=== PATIENT | female | born 1950 | race Caucasian/White ===

== ENCOUNTER 2023-09-01 05:34 | Observation (INO) | payer BC ==
[2023-08-25 16:22] LABS: BASOPHILS # (AUTO) 0.1 X10'3 (0-0.2); BASOPHILS % (AUTO) 1.1 % (0-1); EOSINOPHILS # (AUTO) 0.3 X10'3 (0-0.9); EOSINOPHILS % (AUTO) 3.7 % (0-6); LYMPHOCYTES # (AUTO) 2.2 X10'3 (1.1-4.8); LYMPHOCYTES % (AUTO) 29.2 % (21-51); MEAN CORPUSCULAR HEMOGLOBIN 29.4 PG (27.0-31.0); MEAN CORPUSCULAR HGB CONC 32.9 g/dL (33.0-36.5); MEAN CORPUSCULAR VOLUME 89.5 FL (78-98); MEAN PLATELET VOLUME 8.4 FL (7.4-10.4); MONOCYTES # (AUTO) 0.6 X10'3 (0-0.9); MONOCYTES % (AUTO) 7.9 % (2-12); NEUTROPHILS # (AUTO) 4.4 X10'3 (1.8-7.7); NEUTROPHILS % (AUTO) 58.1 % (42-75); PRE OP HEMATOCRIT 44.1 % (35.0-45.0); PRE OP HEMOGLOBIN 14.5 g/dL (12.0-16.0); PRE OP PLATELET COUNT 249 X10'3 (140-440); PRE OP WHITE BLOOD COUNT 7.6 10'3 (4.8-10.8); RED BLOOD COUNT 4.93 X10'6 (4.20-5.60); RED CELL DISTRIBUTION WIDTH 14.3 % (11.5-14.5)
[2023-08-25 16:40] LABS: ALBUMIN 4.1 G/DL (3.4-5.0); ALBUMIN/GLOBULIN RATIO 1.1 (1.1-1.5); ALKALINE PHOSPHATASE 103 IU/L (46-116); BLOOD UREA NITROGEN 19 MG/DL (7-18); BUN/CREATININE RATIO 22.9 (10.0-20.0); CALCIUM 9.3 MG/DL (8.5-10.1); CHLORIDE 102 MMOL/L (99-107); CREATININE 0.83 MG/DL (0.40-0.90); PRE OP ALT 20 U/L (30-65); PRE OP ANION GAP 8 (8-16); PRE OP AST 17 U/L (10-37); PRE OP BILIRUB, TOTAL 0.4 MG/DL (0.0-1.0); PRE OP GLUCOSE 100 MG/DL (70-104); PRE OP POTASSIUM 4.3 MMOL/L (3.4-5.1); PRE OP SODIUM 140 MMOL/L (135-145); eGFR 67 ML/MIN
[2023-09-01] VITALS (43 sets, daily range): BP systolic 106–152; BP diastolic 58–86; PULSE 52–107; RESP 10–33; TEMP 97.8–98.4; O2SAT 81–99
[~2023-09-01] VITALS: Ht 160 cm; Wt 86.0 kg
[~2023-09-01 05:34] MED LIST: BUDE10.22; CARB15DR RIGHTEYE; CETI10TA14 PO; CIDE300T3; CRAN250C2 PO; DULO30CA52 PO; ELDE350C; FLUT16SP2 BOTHNARES; LEVO50TA8 PO; NAPR220T67 PO; OMEP20CA16 PO
[2023-09-01] MEDS: famotidine 20mg tablet PO ONE (06:06)
[2023-09-01] MEDS: cefazolin 2gm/D5W 100mL 100 ML IV ONE (06:06)
[2023-09-01] MEDS ORDERED: LIDOcaine 1% (10mg/ml)w/preservative inj. 20ml MDV ONE (06:50)
[2023-09-01] MEDS ORDERED: BUPIVAcaine/PF 2.5mg/ml (0.25%) 10ml vial ONE (06:51)
[2023-09-01] MEDS ORDERED: midazolam 1 mg/ML 2ml injection ONE (07:11)
[2023-09-01] MEDS ORDERED: fentaNYL /PF 50mcg/ml 5ml ampule ONE (07:11)
[2023-09-01] MEDS ORDERED: LIDOcaine 2% (20mg/ml) 5ml vial ONE (07:12)
[2023-09-01] MEDS ORDERED: propofol inj 20 ML IV ONE (07:12)
[2023-09-01] MEDS ORDERED: dexamethasone sod phosphate 4mg/ml inj. ONE (07:12)
[2023-09-01] MEDS ORDERED: ondansetron/PF 4mg/2ml inj ONE (07:12)
[2023-09-01] MEDS ORDERED: rocuronium 10mg/ml inj IV ONE ×2 (07:12)
[2023-09-01] MEDS ORDERED: fentaNYL/PF 50MCG/1 ML 2ML syringe IV PRN ×2 (07:15)
[2023-09-01] MEDS ORDERED: hydrALAZINE 20mg/ml inj. IV PRN (07:15)
[2023-09-01] MEDS ORDERED: labetalol 20mg/4ml (5mg/ml) syringe IV PRN (07:15)
[2023-09-01] MEDS ORDERED: morphine 2 MG/ML inj. syringe IV PRN (07:15)
[2023-09-01] MEDS ORDERED: ondansetron/PF 4mg/2ml inj IV PRN ×2 (07:15→10:10)
[2023-09-01] MEDS ORDERED: sevoflurane 250ml liquid IH ONE (07:26)
[2023-09-01] MEDS ORDERED: acetaminophen 1,000mg/100ml IV 100 ML IV ONE (07:45)
[2023-09-01] MEDS: BUPIVAcaine/PF 2.5mg/ml (0.25%) 10ml vial IJ ONE ×2 (07:52→08:00)
[2023-09-01] MEDS ORDERED: sugammadex 200mg/2ml injection IV ONE (09:35)
[2023-09-01] MEDS ORDERED: naloxone 0.4 mg/ml inj IV PRN (10:10)
[2023-09-01] MEDS: morphine 4 MG/ML inj SYRINge IV PRN (10:36)
[2023-09-01] MEDS: HYDROmorph/NS 0.2 mg/ml PCA 100 ML IV SCH (11:00)
[2023-09-01] MEDS ORDERED: albuterol 2.5 MG/3 ML nebule NEB SCH (11:00)
[2023-09-01] MEDS: ringers solution, lacted 1,000 ML IV SCH ×3 (15:35→16:56)
[2023-09-01] MEDS: polyvinyl alcohol eye drops 15ML BOTTLE RIGHTEYE SCH (16:00)
[2023-09-01] MEDS: normal saline 1000ml 1,000 ML IV SCH (16:57)
[2023-09-01] MEDS: sennosides/docusate sodium tablet PO SCH (20:00)
[2023-09-01] MEDS: docusate sod 100mg capsule PO SCH (20:00)
[2023-09-01] MEDS: enoxaparin 30mg/0.3ml syringe SQ SCH (20:04)
[2023-09-01] MEDS: magnesium hydroxide 30ml (MOM) UD suspension PO SCH (20:04)
[2023-09-02 02:00] VITALS: BP 117/53; PULSE 87; RESP 18; TEMP 98.5; O2SAT 93
[2023-09-02 06:00] VITALS: BP 120/63; PULSE 90; RESP 20; TEMP 98.4; O2SAT 95
[2023-09-02 07:00] VITALS: RESP 20; O2SAT 95
[2023-09-02] MEDS: duloxetine 30mg CAPSULE.DR PO SCH (07:44)
[2023-09-02] MEDS: levoTHYROXINE 25mcg tablet PO SCH (07:45)
[2023-09-02] MEDS: cetirizine 10mg tablet PO SCH (07:46)
[2023-09-02] MEDS: fluticasone nasal spray 16GM bottle NS SCH (07:47)
[2023-09-02] MEDS ORDERED: oxyCODONE/APAP 5-325mg tablet PO PRN (09:25)
[2023-09-02] MEDS: oxyCODONE/APAP 5-325mg tablet PO ONE (09:39)
[2023-09-02] MEDS: PCA WASTE DOCUMENTATION 1 MG ML MC SCH (10:06)
[2023-09-02 11:01] VITALS: BP 128/59; PULSE 92; RESP 18; TEMP 97.9; O2SAT 95
[2023-09-02] MEDS ORDERED: PER5325T PO (14:20)
== END 2023-09-02 16:45 | disposition home or self-care (01) ==
LOC: PAS 05:34 → PACU 10:14 → SUR 3N 15:50
PROVIDERS: ADMIT Surgery; ATTEND Surgery
DX: K44.9 Diaphragmatic hernia without obstruction or gangrene (principal); E03.9 Hypothyroidism, unspecified; Z79.51 Long term (current) use of inhaled steroids; Z79.899 Other long term (current) drug therapy; Z87.891 Personal history of nicotine dependence
CPT/HCPCS: 36415; 43282; 71045; 80053; 82948; 85025; 93005; 96365; 96366; 96372; 96375; 96376; C1781; G0378; J0131; J0690; J1100; J1170; J1650; J2250; J2270; J2371; J2405; J2704; J2710; J3010; J3490; J7120; A4615; A4618